=== PATIENT | female | born 1985 | race Caucasian/White ===

== ENCOUNTER → 2019-12-22 15:25 | Outpatient (BNVA) | payer OTHER, SELFPAY | PROVIDERS: Visit Provider Nurse Practitioner | DX: N39.0 Urinary tract infection, site not specified (principal); R10.9 Unspecified abdominal pain; R30.0 Dysuria | CPT/HCPCS: 81001; 87086 ==

== ENCOUNTER → 2023-07-28 10:50 | Outpatient (BNVA) | payer OTHER, MEDICAID, SELFPAY | PROVIDERS: PCP Nurse Practitioner Family; Visit Provider Nurse Practitioner Family | DX: R73.9 Hyperglycemia, unspecified | CPT/HCPCS: 83036 ==